=== PATIENT | female | born 1965 | race Caucasian/White ===

== ENCOUNTER → 2016-08-17 | Outpatient (CLI) | payer BC ==
[~2016-08-17] MED LIST: Gadobutrol 10 mMOL/10 ML SDV IVPUSH STA
--- NOTE | 2016-08-17 12:26 | CT ---
EXAMINATION: Non contrast CT head. Coronal and sagittal reformats. HISTORY: Fall FINDINGS: There is a 9 mm right parafalcine convex hyperdensity anteriorly. Otherwise no mass, mass effect, or midline shift. There is a small subcutaneous hematoma within the left parietal region. The ventricl es and sulci are symmetric. No hypoattenuation changes in the major vascular territories to suggest acute infarct. No abnormal intracranial calcifications are detected. No evidence of substantial vascular calcifica tions. The orbits and globes appear normal. Paranasal sinuses and mastoid air cells are well aerated without substantial findings. The pituitar y fossa appears unremarkable. The calvarium is intact. No evidence of skull fracture. IMPRESSION: 1. There is a 9 mm parafalcine hyperdensity along the right frontal lobe. This could represent a sma ll parafalcine hemorrhage, alternatively this could represent a small meningioma. Follow-up may be b eneficial. 2. Small left parietal subcutaneous hematoma.
--- NOTE | 2016-08-17 15:54 | MR ---
EXAMINATION: MRI of brain with and without, MRA head without contrast. TECHNIQUE: Multiplanar and multisequence imaging of the brain without and following the administrati on of 8 mL of Gadavist. HISTORY: Fall. FINDINGS: Cerebral hemispheres and the deep nuclei are without hemorrhage, edema, gliosis, enhancement or atro phy. There is a small 8 mm x 4 mm convexity along the right aspect of the falx anteriorly, this diff usely enhances. No extraaxial collections or hemorrhage. The ventricular system is of normal size and configuration without hydrocephalus. The brainstem and cerebellum are without hemorrhage, mass, edema, gliosis, enhancement or atrophy. Carotid basilar artery flow voids are intact. The otomastoid airspaces are clear. No internal italo tory canal or cerebellopontine angle masses or enhancement. The paranasal sinuses are clear. Globes, optic nerves, orbital apices, optic chiasm, optic tracts, lateral geniculate and visual dayron ices are unremarkable. The pituitary and sella turcica are unremarkable. No meningeal enhancement. The craniocervical junction is unremarkable. No siderosis or evidence of vascular malformation. The calvarium is intact. There is a soft tissue hematoma along the left parietal region. There are origins of the posterior cerebral arteries bilaterally with diminutive P1 segments b ilaterally. The right vertebral artery is dominant. The distal internal carotid arteries appear norm al. Anterior, middle, and posterior cerebral arteries otherwise appear normal. The anterior communic ating artery appears absent. No significant stricture or aneurysm. IMPRESSION: 1. No acute intracranial findings. 2. Tiny meningioma along the right anterior falx.
== END ==
LOC: MW.CT 11:44
PROVIDERS: ATTEND Nurse Practitioner Adult Health
DX: G44.309 Post-traumatic headache, unspecified, not intractable (principal); S00.03XA Contusion of scalp, initial encounter; W18.30XA Fall on same level, unspecified, initial encounter; D32.0 Benign neoplasm of cerebral meninges
CPT/HCPCS: 70450; 70544; 70553; A9585

== ENCOUNTER 2018-12-21 08:14 | Day surgery (SDC) | payer BC, OTHER ==
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
[2018-12-21] MEDS ORDERED: Propofol 200 MG/20 ML SDV ONE (09:17)
[2018-12-21] MEDS ORDERED: fentaNYL 100 MCG/2 ML SDV ONE ×2 (09:17→12:22)
[2018-12-21] MEDS ORDERED: Midazolam 1 MG/ML 2 ML SDV ONE (09:17)
[2018-12-21] MEDS ORDERED: Lidocaine 2% 5 ML SDV ONE (09:17)
[2018-12-21] MEDS ORDERED: Bupivacaine 0.5% 30 ML SDV ONE (09:42)
[2018-12-21] MEDS: Lactated Ringers 1,000 ML IV SCH ×2 (10:03→10:08)
[2018-12-21] MEDS ORDERED: Clindamycin Phosphate in D5W 600 MG in Premix Bag 1 BAG IV ONE ×2 (10:15)
[2018-12-21] MEDS ORDERED: Dexamethasone 4 MG/ML 5 ML MDV ONE (11:40)
[2018-12-21] MEDS ORDERED: HYDROmorphone 2 MG/ML Syringe ONE (11:42)
[2018-12-21] MEDS ORDERED: ePHEDrine 50 MG/ML SDV ONE (11:47)
[2018-12-21] MEDS ORDERED: fentaNYL 100 MCG/2 ML SDV IVPUSH PRN (11:54)
[2018-12-21] MEDS ORDERED: Promethazine 25 MG/ML SDV IM PRN (11:54)
[2018-12-21] MEDS ORDERED: Acetaminophen 1,000 MG in Premix Bag 1 BAG IV PRN (11:58)
--- NOTE | 2018-12-21 12:11 | PN ---
DATE OF SURGERY: Today, December 21, 2018. IDENTIFICATION: The patient is a [id number]. SURGEON: Jez Mcfarlane DPM. PLANNED PROCEDURE: Open reduction with internal fixation of fracture of 5th metatarsal, left foot ALLERGIES: 1. Cephalosporins cause rash. 2. Omnicef causes rash. MEDICAL HISTORY: Significant for: 1. Graves disease. 2. Osteoporosis. 3. Anxiety. 4. Chronic allergic conjunctivitis. 5. Fibromyalgia. CURRENT MEDICATIONS: 1. Celebrex 100 mg one cap p.o. b.i.d. 2. Multivitamin one daily. 3. Lexapro 10 mg daily. 4. Potassium citrate 10 mEq daily. 5. Omeprazole 20 mg daily. 6. Gabapentin 600 mg half tab in the morning and one tab daily at bedtime. 7. Cyclobenzaprine 5 mg one tab p.o. t.i.d. p.r.n. muscle spasm. 8. Prolia 60 mg every six months. LABORATORY DATA: White blood cell 7.63, hemoglobin 13.7, hematocrit 42.2, platelets 225. PT 9.7, INR was 0.9. Sodium 138, potassium 4.4, chloride 104, bicarbonate 30, BUN 21, creatinine 0.75, GFR 81, glucose 87, calcium 9.6. Chest x-ray showed left lower lung atelectasis, otherwise was unremarkable. EKG showed normal sinus rhythm. The patient was cleared for surgery by Dr. Claire Dennis. The patient presents for surgical correction of 5th metatarsal fracture of left foot today. All the patient's questions have been answered, and the patient's consent form has been signed and placed in the patient's chart. No guarantees have been given or implied and all the patient's questions have been answered. ANTHONY / HERO /[id number]
[2018-12-21] MEDS ORDERED: Ketorolac 30 MG/ML SDV ONE (12:50)
[2018-12-21] MEDS ORDERED: Ondansetron 4 MG/2 ML SDV ONE (13:10)
--- NOTE | 2018-12-21 13:45 | PCM.OPNOTE ---
- General Post-Op/Procedure Note Date of Surgery/Procedure: 12/21/18 Operative Procedure(s): ORIF fifth metatarsal fracture left foot Findings: consistent with diagnosis Pre Op Diagnosis: fracture of fifth metatarsal left foot Post-Op Diagnosis: fracture of fifth metatarsal left foot Anesthesia Technique: General LMA Primary Surgeon: Jez Mcfarlane Pathology: none EBL in mLs: 15 Complications: none Condition: Good Free Text/Narrative:: materials: [employer] intramedullary screw, cannulated, 4 x 48 mm 4-0 Vicryl 4-0 Prolene injectables: 10 ml 0.5% marcaine plain
--- NOTE | 2018-12-21 14:11 | PCM.POSTAN ---
POST ANESTHESIA ASSESSMENT - MENTAL STATUS Mental Status: Alert, Oriented - RESPIRATORY Respiratory Status: Respiratory Rate WNL, Airway Patent, O2 Saturation Stable - CARDIOVASCULAR CV Status: Pulse Rate WNL, Blood Pressure Stable - GASTROINTESTINAL GI Status: No Symptoms - PAIN Pain Score: 0 - POST OP HYDRATION Hydration Status: Adequate & Stable
--- NOTE | 2018-12-21 14:41 | PCM48HPAN ---
Post Anesthesia Note - EVALUATION WITHIN 48HRS OF ANESTHETIC Vital Signs in Normal Range: Yes Patient Participated in Evaluation: Yes Respiratory Function Stable: Yes Airway Patent: Yes Cardiovascular Function Stable: Yes Hydration Status Stable: Yes Pain Control Satisfactory: Yes Nausea and Vomiting Control Satisfactory: Yes Mental Status Recovered: Yes Resp Rate: 14
[2018-12-21 15:58] VITALS: BP 116/80
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
== END 2018-12-21 15:45 | disposition home or self-care (01) ==
LOC: MW.SDS 08:14
PROVIDERS: ATTEND Podiatrist Foot & Ankle Surgery
DX: S92.352A Displaced fracture of fifth metatarsal bone, left foot, initial encounter for closed fracture (principal); M81.0 Age-related osteoporosis without current pathological fracture; E05.00 Thyrotoxicosis with diffuse goiter without thyrotoxic crisis or storm; F41.9 Anxiety disorder, unspecified; M79.7 Fibromyalgia; K21.9 Gastro-esophageal reflux disease without esophagitis; G43.909 Migraine, unspecified, not intractable, without status migrainosus; F32.9 Major depressive disorder, single episode, unspecified; V29.3XXA Motorcycle rider (driver) (passenger) injured in unspecified nontraffic accident, initial encounter; Z98.84 Bariatric surgery status; Z88.1 Allergy status to other antibiotic agents; Z88.8 Allergy status to other drugs, medicaments and biological substances; Z79.899 Other long term (current) drug therapy
CPT/HCPCS: 28485; J1100; J1170; J1885; J2001; J2250; J2405; J2704; J3010; J3490; J7120

== ENCOUNTER 2019-06-22 10:54 | Emergency (ER) | payer BC, OTHER ==
--- NOTE | 2019-06-22 11:32 | EDM.PDOC ---
ED HPI GENERAL MEDICAL PROBLEM - General Chief Complaint: Respiratory Problem Stated Complaint: FLU SYMPTOMS Time Seen by Provider: 06/22/19 11:00 Source of Information: Reports: Patient History Limitations: Reports: No Limitations - History of Present Illness INITIAL COMMENTS - FREE TEXT/NARRATIVE: HISTORY AND PHYSICAL: History of present illness: Patient is a 54-year-old female who presents to the ED today for concern of cough, feeling hot and cold, nasal congestion over the past 2 to 3 weeks. Patient states that she had improvement of her symptoms but never had her symptoms fully go away and starting over the past 3 to 4 days has had worsening of symptoms again. Patient states she has not checked her temperature at home but has felt hot and cold. Patient states she has a history of fibromyalgia but denies any other health history. Patient denies any other symptoms or concerns. Patient denies chest pain, shortness of breath. Denies headache, neck stiff ness , change in vision, syncope, or near syncope. Denies nausea, vomiting, abdominal pain, diarrhea, constipation, or dysuria. Has not noted any blood in urine or stool. Patient has been eating and drinking appropriately. Review of systems: As per history of present illness and below otherwise all systems reviewed and negative. Past medical history: As per history of present illness and as reviewed below otherwise noncontributory. Surgical history: As per history of present illness and as reviewed below otherwise noncontributory. Social history: See social history for further information Family history: As per history of present illness and as reviewed below otherwise noncontributory. Physical exam: General: Patient is alert, oriented, and in no acute distress. Patient sitting comfortably on exam table. HEENT: Atraumatic, normocephalic, pupils equal and reactive bilaterally, negative for conjunctival pallor or scleral icterus, mucous membranes moist, TMs normal bilaterally, throat clear, neck supple, nontender, trachea midline. No drooling or trismus noted. No meningeal signs. No hot potato voice noted. Right-sided clear nasal drainage, left nare is congestion. Pain with palpation of maxillary sinus bilaterally. Lungs: Clear to auscultation, breath sounds equal bilaterally, chest nontender. Heart: S1S2, regular rate and rhythm without overt murmur Abdomen: Soft, nondistended, nontender. Negative for masses or hepatosplenomegaly. Negative for costovertebral tenderness. Pelvis: Stable nontender. Genitourinary: Deferred. Rectal: Deferred. Skin: Intact, warm, dry. No lesions or rashes noted. Extremities: Atraumatic, negative for cords or calf pain. Neurovascular unremarkable. Neuro: Awake, alert, oriented. Cranial nerves II through XII unremarkable. Cerebellum unremarkable. Motor and sensory unremarkable throughout. Exam nonfocal. Notes: Discussed importance for follow-up with a primary care provider. Voices understanding and is agreeable to plan of care. Denies any further questions or concerns at this time. Diagnostics: CBC, CMP, UA, CXR, influenza, strep Therapeutics: None Prescription: Amoxicillin, Medrol dose pack, Proair inhaler Impression: Acute sinusitis, maxillary Cough Plan: 1. Take medication as prescribed. You can alternate ibuprofen and Tylenol as directed for pain and discomfort. 2. Follow-up with a primary care provider as discussed. Return to the ED as needed and as discussed. Definitive disposition and diagnosis as appropriate pending reevaluation and review of above. - Related Data Allergies Allergy/AdvReac Type Severity Reaction Status Date / Time cefdinir [From Omnicef] Allergy Unknown Hives Verified 12/20/18 10:30 Cephalosporins Allergy Rash Verified 12/20/18 10:30 doxycycline Allergy Vomiting Verified 06/22/19 11:05 ferrous sulfate Allergy Nausea and Verified 12/20/18 10:30 Vomiting Home Meds: Home Meds Cyanocobalamin/FA/Pyridoxine [Folbic] 1 tab PO WEEKLY 12/20/18 [History] Denosumab [Prolia] 1 injection IM Q6M 12/20/18 [History] Escitalopram [Lexapro] 10 mg PO QAM 12/20/18 [History] Omeprazole 20 mg PO QAM 12/20/18 [History] Potassium Citrate [Potassium Citrate ER] 10 meq PO QAM 12/20/18 [History] Albuterol Sulfate [Proair Hfa] 8.5 gm IH Q8HR PRN #1 hfa.aer.ad 06/22/19 [Rx] Amoxicillin 1,000 mg PO TID 5 Days #30 tablet 06/22/19 [Rx] Biotin 06/22/19 [History] methylPREDNISolone [Medrol] 4 mg PO ASDIRECTED #1 dosepk 06/22/19 [Rx] Past Medical History Gastrointestinal History: Reports: GERD, Hiatal Hernia Genitourinary History: Reports: Renal Calculus Musculoskeletal History: Reports: Fracture, Fibromyalgia, Osteoporosis, Other ( See Below) Other Musculoskeletal History: Spinal Stenosis, Hx of "[place] " fracture and left 5th metatarsal fx Neurological History: Reports: Concussion, Migraines, Other (See Below) Other Neuro History: has right frontal lobe meningoma Psychiatric History: Reports: Anxiety, Depression Endocrine/Metabolic History: Reports: Other (See Below) Other Endocrine/Metabolic History: Graves disease- currently "under control" Hematologic History: Reports: Anemia, Iron Deficiency Other Hematologic History: has had iron infusions - Past Surgical History Head Surgeries/Procedures: Reports: None HEENT Surgical History: Reports: LASIK GI Surgical History: Reports: Bariatric Procedure, Colonoscopy, EGD, Sakshi Fundoplication, Other (See Below) Other GI Surgeries/Procedures: Abdominoplasty Female Surgical History: Reports: Breast Implant, Hysterectomy, Lithotripsy/ ESWL, Other (See Below) Other Female Surgeries/Procedures: Vaginal Vault Suspension Musculoskeletal Surgical History: Reports: Other (See Below) Social & Family History - Family History Family Medical History: Noncontributory - Tobacco Use Smoking Status *Q: Never Smoker - Recreational Drug Use Recreational Drug Use: No ED ROS GENERAL - Review of Systems Review Of Systems: Comprehensive ROS is negative, except as noted in HPI. ED EXAM, GENERAL - Physical Exam Exam: See Below (see dictation) Course - Vital Signs Last Recorded V/S: Last Vital Signs Temp 97.9 F 06/22/19 11:07 Pulse 66 06/22/19 12:47 Resp 18 06/22/19 12:47 BP 128/65 06/22/19 12:47 Pulse Ox 98 06/22/19 12:47 - Orders/Labs/Meds Orders: Active Orders 24 hr Category Date Time Status CULTURE STREP A CONFIRMATION [RM] Stat Lab 06/22/19 11:20 Results STREP SCRN A RAPID W CULT CONF [RM] Stat Lab 06/22/19 11:20 Results Labs: Laboratory Tests 06/22/19 06/22/19 06/22/19 Range/Units 11:47 11:47 12:03 WBC 6.97 (4.0-11.0) K/uL RBC 4.75 (4.30-5.90) M/uL Hgb 13.7 (12.0-16.0) g/dL Hct 41.2 (36.0-46.0) % MCV 86.7 (80.0-98.0) fL MCH 28.8 (27.0-32.0) pg MCHC 33.3 (31.0-37.0) g/dL RDW Std Deviation 45.2 (28.0-62.0) fl RDW Coeff of Amy 14 (11.0-15.0) % Plt Count 171 (150-400) K/uL MPV 9.60 (7.40-12.00) fL Neut % (Auto) 52.1 (48.0-80.0) % Lymph % (Auto) 34.9 (16.0-40.0) % [place] % (Auto) 10.3 (0.0-15.0) % Eos % (Auto) 2.3 (0.0-7.0) % Baso % (Auto) 0.4 (0.0-1.5) % Neut # (Auto) 3.6 (1.4-5.7) K/uL Lymph # (Auto) 2.4 (0.6-2.4) K/uL [place] # (Auto) 0.7 (0.0-0.8) K/uL Eos # (Auto) 0.2 (0.0-0.7) K/uL Baso # (Auto) 0.0 (0.0-0.1) K/uL Nucleated RBC % 0.0 /100WBC Nucleated RBCs # 0 K/uL Sodium 138 (136-145) mmol/L Potassium 4.5 (3.5-5.1) mmol/L Chloride 102 (98-107) mmol/L Carbon Dioxide 27.3 (21.0-32.0) mmol/L BUN 20 H (7.0-18.0) mg/dL Creatinine 0.8 (0.6-1.0) mg/dL Est Cr Clr Drug Dosing 67.27 mL/min Estimated GFR (MDRD) > 60.0 ml/min Glucose 91 (74-106) mg/dL Calcium 9.4 (8.5-10.1) mg/dL Total Bilirubin 0.6 (0.2-1.0) mg/dL AST 23 (15-37) IU/L ALT 27 (14-63) IU/L Alkaline Phosphatase 52 (46-116) U/L Total Protein 6.8 (6.4-8.2) g/dL Albumin 3.6 (3.4-5.0) g/dL Globulin 3.2 (2.6-4.0) g/dL Albumin/Globulin Ratio 1.1 (0.9-1.6) Urine Color YELLOW Urine Appearance CLEAR Urine pH 7.5 (5.0-8.0) Ur Specific [place] 1.010 (1.001-1.035) Urine Protein NEGATIVE (NEGATIVE) mg/dL Urine Glucose (UA) NEGATIVE (NEGATIVE) mg/dL Urine Ketones NEGATIVE (NEGATIVE) mg/dL Urine Occult Blood NEGATIVE (NEGATIVE) Urine Nitrite NEGATIVE (NEGATIVE) Urine Bilirubin NEGATIVE (NEGATIVE) Urine Urobilinogen 0.2 (<2.0) EU/dL Ur Leukocyte Esterase NEGATIVE (NEGATIVE) Departure - Departure Time of Disposition: 13:42 Disposition: Home, Self-Care 01 Clinical Impression: Cough Acute sinusitis Qualifiers: Sinusitis location: maxillary Recurrence: not specified as recurrent Qualified Code(s): J01.00 - Acute maxillary sinusitis, unspecified - Discharge Information Prescriptions: Albuterol Sulfate [Proair Hfa] 8.5 gm IH Q8HR PRN #1 hfa.aer.ad PRN Reason: Cough Amoxicillin 1,000 mg PO TID 5 Days #30 tablet methylPREDNISolone [Medrol] 4 mg PO ASDIRECTED #1 dosepk Instructions: Acute Bronchitis, Adult, Pu[place]-yj-[place]ue Referrals: Claire Dennis MD [Primary Care Provider] - Forms: ED Department Discharge Additional Instructions: The following information is given to patients seen in the emergency department who are being discharged to home. This information is to outline your options for follow-up care. We provide all patients seen in our emergency department with a follow-up referral. The need for follow-up, as well as the timing and circumstances, are variable depending upon the specifics of your emergency department visit. If you don't have a primary care physician on staff, we will provide you with a referral. We always advise you to contact your personal physician following an emergency department visit to inform them of the circumstance of the visit and for follow-up with them and/or the need for any referrals to a consulting specialist. The emergency department will also refer you to a specialist when appropriate. This referral assures that you have the opportunity for follow-up care with a specialist. All of these measure are taken in an effort to provide you with optimal care, which includes your follow-up. Under all circumstances we always encourage you to contact your private physician who remains a resource for coordinating your care. When calling for follow-up care, please make the office aware that this follow-up is from your recent emergency room visit. If for any reason you are refused follow-up, please contact the [facility] Emergency Department at and asked to speak to the emergency department charge nurse. [facility] [address] [place] [id number] [facility] [address] [place] [id number] 1. Take medication as prescribed. You can alternate ibuprofen and Tylenol as directed for pain and discomfort. 2. Follow-up with a primary care provider as discussed. Return to the ED as needed and as discussed. Sepsis Event Note - Evaluation Sepsis Screening Result: No Definite Risk - Focused Exam Vital Signs: Vital Signs Temp Pulse Resp BP Pulse Ox 06/22/19 12:47 66 18 128/65 98 06/22/19 11:07 97.9 F 71 20 118/80 98 Date Exam was Performed: 06/22/19 Time Exam was Performed: 13:41 - My Orders Last 24 Hours: My Active Orders 06/22/19 11:20 CULTURE STREP A CONFIRMATION [RM] Stat STREP SCRN A RAPID W CULT CONF [RM] Stat - Assessment/Plan Last 24 Hours: My Active Orders 06/22/19 11:20 CULTURE STREP A CONFIRMATION [RM] Stat STREP SCRN A RAPID W CULT CONF [] Stat
[2019-06-22 12:14] LABS: BLOOD UREA NITROGEN,BUN 20 mg/dL (7.0-18.0); CARBON DIOXIDE,CO2 27.3 mmol/L (21.0-32.0); CHLORIDE,CL 102 mmol/L (98-107); GLUCOSE RANDOM 91 mg/dL (74-106); POTASSIUM,K 4.5 mmol/L (3.5-5.1); SODIUM,NA 138 mmol/L (136-145)
--- NOTE | 2019-06-22 12:17 | CR ---
Chest: 2 views of the chest wer obtained. Comparison: No prior chest imaging. Minimal artifact is noted over the lateral left costophrenic angle. Several surgical clips and anastomotic sutures are noted within the left upper mid abdomen as well as surgical clips from prior cholecystectom. Lungs show no acute parenchymal change. Heart size and mediastinum are normal. Bony structures appear within normal limits. Impression: 1. Incidental findings. 2. Nothing acute is appreciated. Diagnostic code #2 Study was dictated in [place] Standard Time
[2019-06-22 12:48] VITALS: BP 128/65; PULSE 66
== END 2019-06-22 12:48 | disposition home or self-care (01) ==
LOC: MW.ED 10:54
DX: J01.00 Acute maxillary sinusitis, unspecified (principal); R05 Cough; K21.9 Gastro-esophageal reflux disease without esophagitis; F41.9 Anxiety disorder, unspecified; F32.9 Major depressive disorder, single episode, unspecified; Z88.1 Allergy status to other antibiotic agents; Z88.8 Allergy status to other drugs, medicaments and biological substances; Z98.84 Bariatric surgery status; Z90.710 Acquired absence of both cervix and uterus
CPT/HCPCS: 36415; 71046; 71046-26; 80053; 81003; 85025; 87081; 87804; 87880-QW; 99283; 99283-25

== ENCOUNTER 2019-08-18 10:03 | Emergency (ER) | payer BC, OTHER ==
[2019-08-18 10:19] VITALS: BP 120/86
--- NOTE | 2019-08-18 10:58 | EDM.PDOC ---
ED HPI GENERAL MEDICAL PROBLEM - General Chief Complaint: General Stated Complaint: COUGH, BODY ACHES, LOW TEMP? TRAVELED OUT OF US Time Seen by Provider: 08/18/19 10:30 Source of Information: Reports: Patient History Limitations: Reports: No Limitations - History of Present Illness INITIAL COMMENTS - FREE TEXT/NARRATIVE: 54-year-old female history of fibromyalgia presenting to ER for cough body aches chills x 2 days. Took Tylenol day prior. No vomiting no headache no rash. Travel to [facility]. Denies dyspnea. denies any other associated symptoms neck Pain Score (Numeric/FACES): 8 - Related Data Allergies Allergy/AdvReac Type Severity Reaction Status Date / Time cefdinir [From Omnicef] Allergy Unknown Hives Verified 08/18/19 10:14 Cephalosporins Allergy Rash Verified 08/18/19 10:14 doxycycline Allergy Vomiting Verified 08/18/19 10:14 ferrous sulfate Allergy Nausea and Verified 08/18/19 10:14 Vomiting Home Meds: Home Meds Cyanocobalamin/FA/Pyridoxine [Folbic] 1 tab PO WEEKLY 12/20/18 [History] Denosumab [Prolia] 1 injection IM Q6M 12/20/18 [History] Omeprazole 20 mg PO QAM 12/20/18 [History] Potassium Citrate [Potassium Citrate ER] 10 meq PO QAM 12/20/18 [History] Biotin 06/22/19 [History] DULoxetine [Cymbalta] 40 mg PO DAILY 08/18/19 [History] Past Medical History Gastrointestinal History: Reports: GERD, Hiatal Hernia Genitourinary History: Reports: Renal Calculus Musculoskeletal History: Reports: Fracture, Fibromyalgia, Osteoporosis, Other ( See Below) Other Musculoskeletal History: Spinal Stenosis, Hx of "[place] " fracture and left 5th metatarsal fx Neurological History: Reports: Concussion, Migraines, Other (See Below) Other Neuro History: has right frontal lobe meningoma Psychiatric History: Reports: Anxiety, Depression Endocrine/Metabolic History: Reports: Other (See Below) Other Endocrine/Metabolic History: Graves disease- currently "under control" Hematologic History: Reports: Anemia, Iron Deficiency Other Hematologic History: has had iron infusions - Infectious Disease History Infectious Disease History: Reports: Chicken Pox - Past Surgical History Head Surgeries/Procedures: Reports: None HEENT Surgical History: Reports: RASHEEDIK GI Surgical History: Reports: Bariatric Procedure, Colonoscopy, EGD, Sakshi Fundoplication, Other (See Below) Other GI Surgeries/Procedures: Abdominoplasty Female Surgical History: Reports: Breast Implant, Hysterectomy, Lithotripsy/ ESWL, Other (See Below) Other Female Surgeries/Procedures: Vaginal Vault Suspension Musculoskeletal Surgical History: Reports: Other (See Below) Social & Family History - Family History Family Medical History: Noncontributory - Tobacco Use Smoking Status *Q: Former Smoker Used Tobacco, but Quit: Yes Month/Year Tobacco Last Used: 2004 - Caffeine Use Caffeine Use: Reports: Coffee, Soda - Recreational Drug Use Recreational Drug Use: No ED ROS GENERAL - Review of Systems Review Of Systems: Comprehensive ROS is negative, except as noted in HPI. ED EXAM, GENERAL - Physical Exam Exam: See Below Exam Limited By: No Limitations General Appearance: Alert, No Apparent Distress Ears: Normal External Exam Nose: Normal Inspection Throat/Mouth: Normal Lips Head: Atraumatic, Normocephalic Neck: Normal Inspection Respiratory/Chest: No Respiratory Distress, Lungs Clear, Normal Breath Sounds, No Accessory Muscle Use, Chest Non-Tender Cardiovascular: Regular Rate, Rhythm, No Edema, No Gallop, No JVD, No Murmur, No Rub GI/Abdominal: Soft, Non-Tender, No Organomegaly Back Exam: Normal Inspection Extremities: Normal Inspection Neurological: Alert, Oriented Skin Exam: Warm Course - Vital Signs Last Recorded V/S: Last Vital Signs Temp 96.0 F L 08/18/19 10:16 Pulse 97 08/18/19 10:16 Resp 17 08/18/19 10:16 BP 120/86 08/18/19 10:16 Pulse Ox 95 08/18/19 10:16 - Re-Assessments/Exams Free Text/Narrative Re-Assessment/Exam: 08/18/19 11:01 Well-appearing no apparent distress nontoxic afebrile here. no Hypoxia. Likely Viral URI. Gave her instructions to self quarantine for 2 weeks. Return precautions also discussed with the patient. Departure - Departure Time of Disposition: 11:03 Disposition: Home, Self-Care 01 Clinical Impression: Viral URI - Discharge Information Referrals: Claire Dennis MD [Primary Care Provider] - Forms: ED Department Discharge Additional Instructions: when to stop isolation: You have had no fever for at least 72 hours (that is three full days of no fever without the use medicine that reduces fevers) AND other symptoms have improved (for example, when your cough or shortness of breath have improved) AND at least 7 days have passed since your symptoms first appeared REturn to ED if fever does not resolve, you develop confusion, sob, or any concerns. The following information is given to patients seen in the emergency department who are being discharged to home. This information is to outline your options for follow-up care. We provide all patients seen in our emergency department with a follow-up referral. The need for follow-up, as well as the timing and circumstances, are variable depending upon the specifics of your emergency department visit. If you don't have a primary care physician on staff, we will provide you with a referral. We always advise you to contact your personal physician following an emergency department visit to inform them of the circumstance of the visit and for follow-up with them and/or the need for any referrals to a consulting specialist. The emergency department will also refer you to a specialist when appropriate. This referral assures that you have the opportunity for follow-up care with a specialist. All of these measure are taken in an effort to provide you with optimal care, which includes your follow-up. Under all circumstances we always encourage you to contact your private physician who remains a resource for coordinating your care. When calling for follow-up care, please make the office aware that this follow-up is from your recent emergency room visit. If for any reason you are refused follow-up, please contact the [facility] Emergency Department at and asked to speak to the emergency department charge nurse. Sepsis Event Note - Evaluation Sepsis Screening Result: No Definite Risk - Focused Exam Vital Signs: Vital Signs Temp Pulse Resp BP Pulse Ox 08/18/19 10:16 96.0 F L 97 17 120/86 95 Date Exam was Performed: 08/18/19 Time Exam was Performed: 10:59
[2019-08-18 11:35] VITALS: PULSE 79
== END 2019-08-18 11:35 | disposition home or self-care (01) ==
LOC: MW.ED 10:03
DX: J06.9 Acute upper respiratory infection, unspecified (principal); Z88.8 Allergy status to other drugs, medicaments and biological substances; Z88.1 Allergy status to other antibiotic agents; Z79.899 Other long term (current) drug therapy
CPT/HCPCS: 99283